=== PATIENT | female | born 1950 | race Caucasian/White ===

== ENCOUNTER 2019-02-19 11:13 | Emergency (ER) | payer MEDICARE, MEDICAID ==
[~2019-02-19 11:13] MED LIST: FERR325T23 PO; LEVO50TA8; NITR-87 PO; PHEN-910 PO; PRED5DRO7 OP; TIMO15DR12 OP
[2019-02-19 12:11] LABS: CLARITY URINE CLEAR (CLEAR); COLOR URINE YELLOW (YELLOW); KETONES URINE NEGATIVE (NEGATIVE); LEUKOCYTE ESTERASE URINE 1+ (NEGATIVE); NITRITE URINE NEGATIVE (NEGATIVE); OCCULT BLOOD URINE 2+ (NEGATIVE); PH URINE >=9.0 (4.5-8.0); PROTEIN URINE TRACE (NEGATIVE); SPECIFIC GRAVITY URINE 1.011 (1.005-1.030)
[2019-02-19] MEDS ORDERED: ACETAMINOPHEN 325MG TABLET PO ONE (12:15)
[2019-02-19] MEDS ORDERED: LEVOFLOXACIN 750MG PREMIX 150 ML IV ONE (12:15)
[2019-02-19] MEDS ORDERED: SODIUM CHLORIDE 0.9% 1000ML BAG (SEPSIS BOLUS) IV ONE (12:15)
[2019-02-19 12:34] LABS: BASOPHILS % 0.2 % (0.0-2.0); HEMATOCRIT. 41.7 % (36.0-48.0); HEMOGLOBIN. 14.4 g/dL (12.0-16.0); MEAN CORPUSCULAR HEMOGLOBIN 29.7 pg (28.0-32.0); MEAN PLATELET VOLUME 7.5 fl (7.4-10.4); MONOCYTES % 7.7 % (2.0-8.0); NEUTROPHILS % 75.1 % (40.0-76.0); PLATELET 135 x1000/uL (130-400); RED BLOOD CELL COUNT 4.84 mill/uL (4.2-5.4); RED CELL DISTRIBUTION WIDTH 15.3 % (11.6-14.6)
[2019-02-19 12:40] LABS: CHLORIDE 98 mEq/L (98-107)
[2019-02-19] MEDS ORDERED: POTASSIUM CHLORIDE 20MEQ TABLET SR PO ONE (13:15)
[2019-02-19] MEDS ORDERED: KCL 20MEQ/100ML PREMIX 100 ML IV ONE (13:15)
[2019-02-19] MEDS ORDERED: IBUPROFEN 400MG TABLET PO ONE (14:30)
[2019-02-19 20:25] VITALS: BP 119/62
== END 2019-02-19 20:30 | disposition home or self-care (01) ==
LOC: ER 11:13
DX: N39.0 Urinary tract infection, site not specified (principal); R50.9 Fever, unspecified; E78.00 Pure hypercholesterolemia, unspecified; I10 Essential (primary) hypertension; M19.90 Unspecified osteoarthritis, unspecified site; E03.9 Hypothyroidism, unspecified; E87.6 Hypokalemia
CPT/HCPCS: 36415; 71045; 80053; 81003; 83605; 83735; 84132; 84145; 84484; 85025; 87040; 87077; 87086; 87186; 93005; 96365; 96366; 96367; 99284; J1956; J3480; J7030; J7040

== ENCOUNTER 2019-02-20 12:32 | Inpatient (IN) | payer MEDICARE, MEDICAID ==
[~2019-02-20] VITALS: Ht 162.6 cm; Wt 77.6 kg
[2019-02-20] MEDS ORDERED: CEFTRIAXONE 1 G PREMIX 50 ML IV ONE (16:30)
[2019-02-20 17:18] LABS: BASOPHILS % 0.3 % (0.0-2.0); EOSINOPHILS % 0.8 % (0.0-5.0); HEMATOCRIT. 36.3 % (36.0-48.0); HEMOGLOBIN. 12.4 g/dL (12.0-16.0); LYMPHOCYTES % 29.7 % (20.0-50.0); MEAN CORPUSCULAR HEMOGLOBIN 29.7 pg (28.0-32.0); MEAN CORPUSCULAR VOLUME 87.2 fL (81.0-99.0); MEAN PLATELET VOLUME 7.9 fl (7.4-10.4); MONOCYTES % 12.7 % (2.0-8.0); NEUTROPHILS % 56.5 % (40.0-76.0); PLATELET 126 x1000/uL (130-400); RED BLOOD CELL COUNT 4.16 mill/uL (4.2-5.4); RED CELL DISTRIBUTION WIDTH 15.7 % (11.6-14.6)
[2019-02-20 17:22] LABS: CHLORIDE 109 mEq/L (98-107); INR 1.1; PROTHROMBIN TIME 11.7 sec (9.6-11.0)
[2019-02-20 18:26] LABS: CLARITY URINE CLEAR (CLEAR); COLOR URINE DARK YELLOW (YELLOW); KETONES URINE TRACE (NEGATIVE); LEUKOCYTE ESTERASE URINE 2+ (NEGATIVE); NITRITE URINE NEGATIVE (NEGATIVE); OCCULT BLOOD URINE 2+ (NEGATIVE); PROTEIN URINE 1+ (NEGATIVE); SPECIFIC GRAVITY URINE 1.023 (1.005-1.030)
[2019-02-20 22:00] VITALS: BP 111/57
[2019-02-20] MEDS ORDERED: ACETAMINOPHEN 325MG TABLET PO PRN (23:30)
[2019-02-20] MEDS ORDERED: ONDANSETRON HCL 4MG/2ML INJ IV PRN (23:30)
[2019-02-21] VITALS: BP 121/61
[2019-02-21] MEDS ORDERED: CEFTRIAXONE 1 G PREMIX 50 ML IV SCH ×2 (02:00→17:00)
[2019-02-21] MEDS: SODIUM CHL 0.9% + KCL 20MEQ/L 1,000 ML IV SCH ×2 (02:14→14:17)
[2019-02-21 04:00] VITALS: BP 104/57
[2019-02-21] MEDS ORDERED: SIMV20TA6 MT (06:45)
[2019-02-21] MEDS: LEVOTHYROXINE SODIUM 75MCG TABLET PO SCH (06:50)
[2019-02-21 07:25] LABS: BASOPHILS % 0.3 % (0.0-2.0); EOSINOPHILS % 1.5 % (0.0-5.0); HEMATOCRIT. 37.5 % (36.0-48.0); HEMOGLOBIN. 12.6 g/dL (12.0-16.0); LYMPHOCYTES % 28.5 % (20.0-50.0); MEAN CORPUSCULAR HEMOGLOBIN 29.4 pg (28.0-32.0); MEAN CORPUSCULAR VOLUME 87.7 fL (81.0-99.0); MEAN PLATELET VOLUME 8.1 fl (7.4-10.4); MONOCYTES % 10.5 % (2.0-8.0); NEUTROPHILS % 59.2 % (40.0-76.0); PLATELET 124 x1000/uL (130-400); RED BLOOD CELL COUNT 4.28 mill/uL (4.2-5.4); RED CELL DISTRIBUTION WIDTH 15.9 % (11.6-14.6)
[2019-02-21 07:25] LABS: CHLORIDE 112 mEq/L (98-107)
[2019-02-21 08:00] VITALS: BP 109/60
[2019-02-21] MEDS ORDERED: DIFL5DRO RIGHTEYE (08:10)
[2019-02-21] MEDS ORDERED: CHOL200041 PO (08:10)
[2019-02-21] MEDS ORDERED: ALEN70TA3 PO (08:10)
[2019-02-21] MEDS ORDERED: DORZ10DR9 EACHEYE (08:10)
[2019-02-21] MEDS ORDERED: HYDR-2510 PO (08:10)
[2019-02-21] MEDS ORDERED: LEVO75TA7 PO (08:10)
[2019-02-21] MEDS: DORZOLAM/TIMOLOL 2.23/0.68% OPHTH DROPS 10ML BOTHEYE SCH ×2 (08:13→20:30)
[2019-02-21 12:00] VITALS: BP 120/58
[2019-02-21] MEDS ORDERED: IBUP-2030 MT (12:58)
[2019-02-21 16:00] VITALS: BP 129/69
[2019-02-21] MEDS: DUREZOL 0.05% OP SCH (16:17)
[2019-02-21] MEDS: IBUPROFEN 800MG TABLET PO PRN (16:21)
[2019-02-21 20:00] VITALS: BP 122/58
[2019-02-21] MEDS: CHOLECALCIFEROL (D3) 1000 UNIT TABLET PO SCH (20:30)
[2019-02-21] MEDS: HYDROCHLOROTHIAZIDE 25MG TABLET PO SCH (20:30)
[2019-02-21] MEDS ORDERED: ATORVASTATIN CALCIUM 20MG TABLET PO SCH ×2 (21:00)
[2019-02-22] VITALS: BP 99/55
[2019-02-22] MEDS ORDERED: CEFTRIAXONE 2 G PREMIX 50 ML IV SCH (02:00)
[2019-02-22] MEDS ORDERED: CEFTRIAXONE 2 G in DEXTROSE 5% WATER 50 ML IV SCH (02:00)
[2019-02-22] MEDS: SODIUM CHL 0.9% + KCL 20MEQ/L 1,000 ML IV SCH (03:49)
[2019-02-22 04:00] VITALS: BP 106/56
[2019-02-22] MEDS: LEVOTHYROXINE SODIUM 75MCG TABLET PO SCH (06:20)
[2019-02-22 07:08] LABS: BASOPHILS % 0.3 % (0.0-2.0); EOSINOPHILS % 1.8 % (0.0-5.0); HEMATOCRIT. 37.8 % (36.0-48.0); HEMOGLOBIN. 12.7 g/dL (12.0-16.0); MEAN CORPUSCULAR HEMOGLOBIN 29.4 pg (28.0-32.0); MEAN CORPUSCULAR VOLUME 87.7 fL (81.0-99.0); MEAN PLATELET VOLUME 7.9 fl (7.4-10.4); MONOCYTES % 11.7 % (2.0-8.0); NEUTROPHILS % 47.2 % (40.0-76.0); PLATELET 133 x1000/uL (130-400); RED BLOOD CELL COUNT 4.31 mill/uL (4.2-5.4); RED CELL DISTRIBUTION WIDTH 15.4 % (11.6-14.6)
[2019-02-22 07:14] LABS: CHLORIDE 110 mEq/L (98-107)
[2019-02-22 08:00] VITALS: BP 120/62
[2019-02-22] MEDS: DUREZOL 0.05% OP SCH (08:24)
[2019-02-22] MEDS: CHOLECALCIFEROL (D3) 1000 UNIT TABLET PO SCH (08:25)
[2019-02-22] MEDS: DORZOLAM/TIMOLOL 2.23/0.68% OPHTH DROPS 10ML BOTHEYE SCH (08:25)
[2019-02-22] MEDS: HYDROCHLOROTHIAZIDE 25MG TABLET PO SCH (08:25)
[2019-02-22] MEDS: IBUPROFEN 800MG TABLET PO PRN (08:31)
[2019-02-22 12:00] VITALS: BP 104/59
[2019-02-22 12:38] VITALS: BP 104/59
== END 2019-02-22 14:56 | disposition home or self-care (01) | DRG 872 ==
LOC: ER 12:42 → 6EST 17:47 → EDBEDREQ 17:49 → EDBEDREQTM 17:49 → ENRESERV 19:25
PROVIDERS: ADMIT Internal Medicine; ATTEND Internal Medicine
DX: A41.51 Sepsis due to Escherichia coli [E. coli] (principal); E44.1 Mild protein-calorie malnutrition; N12 Tubulo-interstitial nephritis, not specified as acute or chronic; N39.0 Urinary tract infection, site not specified; E78.00 Pure hypercholesterolemia, unspecified; H40.9 Unspecified glaucoma; E03.9 Hypothyroidism, unspecified; E87.6 Hypokalemia; E78.5 Hyperlipidemia, unspecified; E87.8 Other disorders of electrolyte and fluid balance, not elsewhere classified; I10 Essential (primary) hypertension; Z98.49 Cataract extraction status, unspecified eye; Z68.29 Body mass index [BMI] 29.0-29.9, adult
CPT/HCPCS: 36415; 71045; 76770; 80048; 83605; 83735; 84132; 84145; 84484; 87077; 87186; 93005; 96365; 96366; 96367; 96374; 99284; 99285; J0696; J1956; J3480; J7030; J7040; J7060

== ENCOUNTER 2019-04-06 12:02 | Emergency (ER) | payer MEDICARE, MEDICAID ==
[~2019-04-06] VITALS: Ht 142.2 cm; Wt 84.0 kg
[~2019-04-06 12:02] MED LIST changes: +ALEN70TA3 PO; +CHOL200041 PO; +DIFL5DRO RIGHTEYE; +DORZ10DR9 EACHEYE; +HYDR-2510 PO; +IBUP-2030 MT; +LEVO75TA7 PO; -NITR-87 PO; +SIMV20TA6 MT
[2019-04-06 12:51] LABS: CLARITY URINE CLEAR (CLEAR); COLOR URINE YELLOW (YELLOW); KETONES URINE NEGATIVE (NEGATIVE); LEUKOCYTE ESTERASE URINE NEGATIVE (NEGATIVE); NITRITE URINE NEGATIVE (NEGATIVE); OCCULT BLOOD URINE 1+ (NEGATIVE); PH URINE 6.5 (4.5-8.0); PROTEIN URINE NEGATIVE (NEGATIVE); SPECIFIC GRAVITY URINE 1.009 (1.005-1.030); UROBILINOGEN URINE 0.2 E.U./dL (0.2-1.0)
[2019-04-06 13:07] LABS: BASOPHILS % 0.3 % (0.0-2.0); EOSINOPHILS % 1.7 % (0.0-5.0); HEMATOCRIT. 38.5 % (36.0-48.0); HEMOGLOBIN. 13.2 g/dL (12.0-16.0); LYMPHOCYTES % 12.2 % (20.0-50.0); MEAN CORPUSCULAR HEMOGLOBIN 29.5 pg (28.0-32.0); MEAN CORPUSCULAR VOLUME 86.2 fL (81.0-99.0); MEAN PLATELET VOLUME 7.8 fl (7.4-10.4); MONOCYTES % 5.4 % (2.0-8.0); NEUTROPHILS % 80.4 % (40.0-76.0); PLATELET 174 x1000/uL (130-400); RED BLOOD CELL COUNT 4.47 mill/uL (4.2-5.4); RED CELL DISTRIBUTION WIDTH 16.6 % (11.6-14.6)
[2019-04-06 13:17] LABS: CHLORIDE 102 mEq/L (98-107)
[2019-04-06] MEDS ORDERED: POTASSIUM CHLORIDE 20MEQ TABLET SR PO NR (14:00)
[2019-04-06 16:00] VITALS: BP 115/62
== END 2019-04-06 16:05 | disposition home or self-care (01) ==
LOC: ER 12:02
DX: N39.0 Urinary tract infection, site not specified (principal); E87.6 Hypokalemia; E78.00 Pure hypercholesterolemia, unspecified; I10 Essential (primary) hypertension
CPT/HCPCS: 36415; 80048; 87077; 99283

== ENCOUNTER 2020-01-02 10:31 | Emergency (ER) | payer MEDICARE, MEDICAID ==
[~2020-01-02] VITALS: Ht 152.4 cm; Wt 90.0 kg
[~2020-01-02 10:31] MED LIST changes: +SIMV-43 MT; -SIMV20TA6 MT
[2020-01-02 12:08] LABS: CLARITY URINE CLEAR (CLEAR); COLOR URINE DARK YELLOW (YELLOW); KETONES URINE TRACE (NEGATIVE); LEUKOCYTE ESTERASE URINE TRACE (NEGATIVE); NITRITE URINE NEGATIVE (NEGATIVE); OCCULT BLOOD URINE NEGATIVE (NEGATIVE); PH URINE 6.5 (4.5-8.0); PROTEIN URINE TRACE (NEGATIVE); SPECIFIC GRAVITY URINE 1.021 (1.005-1.030)
[2020-01-02] MEDS ORDERED: ACETAMINOPHEN 325MG TABLET PO ONE (12:45)
[2020-01-02 13:15] VITALS: BP 127/65
== END 2020-01-02 13:25 | disposition home or self-care (01) ==
LOC: ER 10:31
DX: R10.9 Unspecified abdominal pain (principal); E78.00 Pure hypercholesterolemia, unspecified; I10 Essential (primary) hypertension; Z87.440 Personal history of urinary (tract) infections
CPT/HCPCS: 81003; 99283

== ENCOUNTER 2021-06-08 17:30 | Emergency (ER) | payer MEDICARE, MEDICAID ==
[~2021-06-08] VITALS: Ht 152.4 cm; Wt 80.0 kg
[~2021-06-08 17:30] MED LIST changes: -HYDR-2510 PO; +HYDR50TA PO
[2021-06-08 18:03] VITALS: BP 151/54
[2021-06-08] MEDS ORDERED: DIPHENHYDRAMINE 50MG CAPSULE PO ONE (20:30)
[2021-06-08] MEDS ORDERED: PREDNISONE 20MG TABLET PO ONE (20:30)
[2021-06-08] MEDS ORDERED: DIPH25CA83 PO (20:56)
[2021-06-08] MEDS ORDERED: CEPH500C2 MT (20:56)
== END 2021-06-08 21:11 | disposition home or self-care (01) ==
LOC: ER 17:57
DX: T78.40XA Allergy, unspecified, initial encounter (principal); H60.12 Cellulitis of left external ear; I10 Essential (primary) hypertension; E78.00 Pure hypercholesterolemia, unspecified; E03.9 Hypothyroidism, unspecified; X58.XXXA Exposure to other specified factors, initial encounter
CPT/HCPCS: 99283; J7512; Q0163

== ENCOUNTER 2021-06-08 22:13 | Inpatient (IN) | payer MEDICARE, MEDICAID ==
[~2021-06-08] VITALS: Ht 162.6 cm; Wt 75.7 kg
[~2021-06-08 22:13] MED LIST changes: +CEPH500C2 MT; +DIPH25CA83 PO
[2021-06-08] MEDS ORDERED: LEVOFLOXACIN 500MG PREMIX 100 ML IV ONE (23:30)
[2021-06-08 23:41] LABS: BASOPHILS % 0.2 % (0.0-2.0); EOSINOPHILS % 0.3 % (0.0-5.0); HEMATOCRIT. 41.2 % (36.0-48.0); HEMOGLOBIN. 14.5 g/dL (12.0-16.0); LYMPHOCYTES % 12.5 % (20.0-50.0); MEAN CORPUSCULAR HEMOGLOBIN 30.7 pg (28.0-32.0); MEAN CORPUSCULAR VOLUME 87.4 fL (81.0-99.0); MEAN PLATELET VOLUME 7.2 fl (7.4-10.4); MONOCYTES % 2.8 % (2.0-8.0); NEUTROPHILS % 84.2 % (40.0-76.0); PLATELET 164 x1000/uL (130-400); RED BLOOD CELL COUNT 4.71 mill/uL (4.2-5.4); RED CELL DISTRIBUTION WIDTH 14.9 % (11.6-14.6)
[2021-06-08 23:59] LABS: CHLORIDE 103 mEq/L (98-107)
[2021-06-09 00:03] LABS: ETHANOL BLOOD < 10 mg/dL
[2021-06-09] MEDS ORDERED: POTASSIUM CHLORIDE 20MEQ/PACKET PO ONE (05:45)
[2021-06-09] MEDS ORDERED: KCL 20MEQ/100ML PREMIX 100 ML IV ONE (05:45)
[2021-06-09 06:37] LABS: CLARITY URINE CLEAR (CLEAR); COLOR URINE YELLOW (YELLOW); KETONES URINE NEGATIVE (NEGATIVE); LEUKOCYTE ESTERASE URINE TRACE (NEGATIVE); NITRITE URINE NEGATIVE (NEGATIVE); OCCULT BLOOD URINE NEGATIVE (NEGATIVE); PROTEIN URINE NEGATIVE (NEGATIVE); SPECIFIC GRAVITY URINE 1.014 (1.005-1.030)
[2021-06-09 07:17] LABS: *AMPHETAMINES SCREEN URINE NEGATIVE (NEGATIVE); *BARBITURATES SCREEN URINE NEGATIVE (NEGATIVE); *BENZODIAZEPINES SCREEN URINE NEGATIVE (NEGATIVE); *COCAINE SCREEN URINE NEGATIVE (NEGATIVE); METHADONE URINE SCREEN NEGATIVE (NEGATIVE)
[2021-06-09 07:18] LABS: CANNABINOID URINE SCREEN NEGATIVE (NEGATIVE); OPIATES URINE SCREEN NEGATIVE (NEGATIVE); PHENCYCLIDINE URINE SCREEN NEGATIVE (NEGATIVE)
[2021-06-09] MEDS ORDERED: ONDANSETRON HCL 4MG/2ML INJ IV PRN (10:45)
[2021-06-09] MEDS ORDERED: ACETAMINOPHEN 325MG TABLET PO PRN (10:45)
[2021-06-09] MEDS ORDERED: AMPICILLIN SOD/SULBACTAM NA 3 G in SODIUM CHLORIDE 0.9% 100 ML IV SCH (12:00)
[2021-06-09 20:40] VITALS: BP 112/55
[2021-06-09] MEDS ORDERED: LEVOFLOXACIN 500MG PREMIX 100 ML IV SCH ×2 (21:00→23:00)
[2021-06-09] MEDS: DIPHENHYDRAMINE 50MG/ML VIAL IV PRN (21:45)
[2021-06-09] MEDS ORDERED: DEXTROSE 5% IV PRN (23:00)
[2021-06-09] MEDS ORDERED: WATER IV PRN (23:00)
[2021-06-09] MEDS ORDERED: ONDANSETRON IV PRN (23:00)
[2021-06-09] MEDS: NEOMYCIN-POLYMYXIN B-HYDROCORTISONE 1% OTIC SOLN 10ML LEFT EAR SCH (23:07)
[2021-06-10] VITALS: BP 127/64
[2021-06-10 04:00] VITALS: BP 126/67
[2021-06-10] MEDS: DIPHENHYDRAMINE 50MG/ML VIAL IV PRN (04:43)
[2021-06-10] MEDS: NEOMYCIN-POLYMYXIN B-HYDROCORTISONE 1% OTIC SOLN 10ML LEFT EAR SCH ×4 (05:56→23:47)
[2021-06-10 08:00] VITALS: BP 90/46
[2021-06-10] MEDS: PANTOPRAZOLE SODIUM 40 MG/VIAL IV SCH (11:48)
[2021-06-10] MEDS: DIPHENHYDRAMINE HCL/ZINC ACET 28 GM CREAM TOP PRN ×3 (11:48→21:55)
[2021-06-10 12:00] VITALS: BP 98/53
[2021-06-10 13:47] LABS: CHLORIDE 104 mEq/L (98-107)
[2021-06-10 16:00] VITALS: BP 84/53
[2021-06-10] MEDS ORDERED: ZOLPIDEM TARTRATE 5MG TABLET PO PRN (18:45)
[2021-06-10] MEDS ORDERED: POTASSIUM CHLORIDE 20MEQ TABLET SR PO NR (18:45)
[2021-06-10] MEDS: DOCUSATE SODIUM 100MG CAPSULE PO SCH (18:57)
[2021-06-10] MEDS ORDERED: POTA2TAB18 PO (19:03)
[2021-06-10] MEDS ORDERED: HYDR25TA MT (19:10)
[2021-06-10] MEDS ORDERED: CHOL500010 (19:10)
[2021-06-10] MEDS ORDERED: DIFL5DRO RIGHTEYE (19:11)
[2021-06-10] MEDS ORDERED: BRIM15DR8 EACHEYE (19:11)
[2021-06-10 20:00] VITALS: BP 101/47
[2021-06-10] MEDS ORDERED: NON FORMULARY PATIENT HOME MED XX SCH (22:15)
[2021-06-11] VITALS: BP 83/46
[2021-06-11 00:15] VITALS: BP 87/53
[2021-06-11 04:00] VITALS: BP 102/56
[2021-06-11] MEDS: NEOMYCIN-POLYMYXIN B-HYDROCORTISONE 1% OTIC SOLN 10ML LEFT EAR SCH ×2 (06:35→15:47)
[2021-06-11] MEDS: DIPHENHYDRAMINE HCL/ZINC ACET 28 GM CREAM TOP PRN ×3 (06:43→15:46)
[2021-06-11] MEDS: DIPHENHYDRAMINE 50MG/ML VIAL IV PRN (07:07)
[2021-06-11] MEDS ORDERED: LEVOTHYROXINE SODIUM 75MCG TABLET PO SCH (07:20)
[2021-06-11 08:00] VITALS: BP 104/58
[2021-06-11] MEDS ORDERED: IBUPROFEN 800MG TABLET PO SCH (09:00)
[2021-06-11] MEDS ORDERED: HYDROCHLOROTHIAZIDE 25MG TABLET PO SCH (09:00)
[2021-06-11] MEDS: PANTOPRAZOLE SODIUM 40 MG/VIAL IV SCH (09:01)
[2021-06-11] MEDS: DOCUSATE SODIUM 100MG CAPSULE PO SCH (09:02)
[2021-06-11] MEDS: DORZOLAM/TIMOLOL 2.23/0.68% OPHTH DROPS 10ML EACHEYE SCH ×2 (09:03→15:47)
[2021-06-11] MEDS: BRIMONIDINE 0.2% OPHTH DROPS 5ML EACHEYE SCH ×2 (09:03→15:47)
[2021-06-11 12:00] VITALS: BP 110/54
[2021-06-11 15:58] VITALS: BP 20/101
[2021-06-12] MEDS ORDERED: DIPH25CA83 PO (08:12)
[2021-06-12] MEDS ORDERED: P50 PO (08:12)
[2021-06-12] MEDS ORDERED: FAMOTIDINE 20MG TABLET PO SCH (09:00)
== END 2021-06-11 16:50 | disposition home or self-care (01) | DRG 156 ==
LOC: ER 22:13 → MICUSO 23:19 → 6EST 06-09 19:55
PROVIDERS: ADMIT Internal Medicine; ATTEND Internal Medicine
DX: H60.92 Unspecified otitis externa, left ear (principal); M81.0 Age-related osteoporosis without current pathological fracture; E78.00 Pure hypercholesterolemia, unspecified; E87.6 Hypokalemia; I10 Essential (primary) hypertension; R21 Rash and other nonspecific skin eruption; Z20.822 Contact with and (suspected) exposure to COVID-19; Z90.49 Acquired absence of other specified parts of digestive tract; Z79.899 Other long term (current) drug therapy; Z79.1 Long term (current) use of non-steroidal anti-inflammatories (NSAID)
CPT/HCPCS: 36415; 71045; 80048; 80053; 80305; 80320; 81003; 82140; 82962; 83605; 83880; 84443; 84484; 85025; 87426; 93005; 99283; 99285; C9113; J0295; J1200; J1956; J3480; J7040; J7050; J7512; Q0163; G0480

== ENCOUNTER 2021-06-12 06:14 | Emergency (ER) | payer MEDICARE, MEDICAID ==
[~2021-06-12] VITALS: Ht 154.9 cm; Wt 80.0 kg
[~2021-06-12 06:14] MED LIST changes: +BRIM15DR8 EACHEYE; -CEPH500C2 MT; +CHOL500010; +HYDR25TA MT; +POTA2TAB18 PO
[2021-06-12] MEDS ORDERED: METHYLPREDNISOLONE SOD SUCC 125 MG/2 ML VIAL IV ONE (07:15)
[2021-06-12] MEDS ORDERED: DIPHENHYDRAMINE 50MG/ML VIAL IV ONE (07:15)
[2021-06-12] MEDS ORDERED: FAMOTIDINE 20MG/2ML VIAL IV ONE (07:15)
[2021-06-12] MEDS ORDERED: P50 PO (08:12)
[2021-06-12] MEDS ORDERED: DIPH25CA83 PO (08:12)
[2021-06-12 08:54] VITALS: BP 104/50
== END 2021-06-12 08:56 | disposition home or self-care (01) ==
LOC: ER 06:29
DX: T78.40XA Allergy, unspecified, initial encounter (principal); E03.9 Hypothyroidism, unspecified; M81.0 Age-related osteoporosis without current pathological fracture; E78.00 Pure hypercholesterolemia, unspecified; Z98.42 Cataract extraction status, left eye; Z98.41 Cataract extraction status, right eye; Z90.710 Acquired absence of both cervix and uterus; X58.XXXA Exposure to other specified factors, initial encounter
CPT/HCPCS: 96374; 96375; 99284; J1200; J2930; J3490

== ENCOUNTER 2021-06-26 16:03 | Emergency (ER) | payer MEDICARE, MEDICAID ==
[~2021-06-26] VITALS: Ht 162.6 cm; Wt 80.0 kg
[~2021-06-26 16:03] MED LIST changes: +P50 PO
[2021-06-26] MEDS ORDERED: BACITRACIN ZINC OINT UDPKT TOP ONE (17:30)
[2021-06-26] MEDS ORDERED: LIDOCAINE HCL/PF 1% 10 MG/ML 5ML VIAL INFIL ONE (17:30)
[2021-06-26 17:36] LABS: BASOPHILS % 1.3 % (0.0-2.0); EOSINOPHILS % 0.9 % (0.0-5.0); HEMATOCRIT. 38.2 % (36.0-48.0); HEMOGLOBIN. 13.1 g/dL (12.0-16.0); LYMPHOCYTES % 26.6 % (20.0-50.0); MEAN CORPUSCULAR HEMOGLOBIN 29.8 pg (28.0-32.0); MEAN CORPUSCULAR VOLUME 87.2 fL (81.0-99.0); MEAN PLATELET VOLUME 6.9 fl (7.4-10.4); MONOCYTES % 10.5 % (2.0-8.0); NEUTROPHILS % 60.7 % (40.0-76.0); PLATELET 154 x1000/uL (130-400); RED BLOOD CELL COUNT 4.38 mill/uL (4.2-5.4); RED CELL DISTRIBUTION WIDTH 15.1 % (11.6-14.6)
[2021-06-26 17:41] LABS: CHLORIDE 105 mEq/L (98-107)
[2021-06-26] MEDS ORDERED: ACET-2708 PO (18:19)
[2021-06-26] MEDS ORDERED: TETANUS, DIPHTHERIA, PERTUSSIS VAC/PF 0.5ML (>7YR OLD) IM ONE (18:30)
[2021-06-26 19:30] VITALS: BP 128/88
== END 2021-06-26 19:32 | disposition home or self-care (01) ==
LOC: ER 16:03
DX: S61.213A Laceration without foreign body of left middle finger without damage to nail, initial encounter (principal); E87.6 Hypokalemia; E03.9 Hypothyroidism, unspecified; H40.9 Unspecified glaucoma; M81.0 Age-related osteoporosis without current pathological fracture; E78.00 Pure hypercholesterolemia, unspecified; Z90.710 Acquired absence of both cervix and uterus; W01.0XXA Fall on same level from slipping, tripping and stumbling without subsequent striking against object, initial encounter; Y93.89 Activity, other specified; Y92.018 Other place in single-family (private) house as the place of occurrence of the external cause
CPT/HCPCS: 12001; 36415; 73130; 80048; 85025; 90471; 90715; 99284; J3490

== ENCOUNTER 2021-06-28 20:00 | Emergency (ER) | payer MEDICARE, MEDICAID ==
[~2021-06-28] VITALS: Ht 162.6 cm; Wt 80.0 kg
[~2021-06-28 20:00] MED LIST changes: +ACET-2708 PO
[2021-06-28] MEDS ORDERED: ACETAMINOPHEN 325MG TABLET PO ONE (22:30)
[2021-06-28 22:37] VITALS: BP 131/66
== END 2021-06-28 22:38 | disposition home or self-care (01) ==
LOC: ER 20:00
DX: S61.412D Laceration without foreign body of left hand, subsequent encounter (principal); H40.9 Unspecified glaucoma; E78.00 Pure hypercholesterolemia, unspecified; X58.XXXD Exposure to other specified factors, subsequent encounter; Z90.710 Acquired absence of both cervix and uterus; Z79.899 Other long term (current) drug therapy
CPT/HCPCS: 99281

== ENCOUNTER 2023-02-11 21:55 | Inpatient (IN) | payer MEDICARE, MEDICAID ==
[~2023-02-11] VITALS: Ht 144.8 cm; Wt 72.6 kg
[~2023-02-11 21:55] MED LIST changes: -ALEN70TA3 PO; +ALEN70TA84 PO
[2023-02-11] MEDS ORDERED: KETOROLAC 60MG/2ML VIAL IM ONE (23:45)
[2023-02-11] MEDS ORDERED: HYDROCODONE/ACETAMINOPHEN 10/325MG TABLET PO ONE (23:45)
[2023-02-12] MEDS ORDERED: TRAM50TA3 MT (02:11)
[2023-02-12] MEDS ORDERED: MORPHINE SULFATE 4 MG/ML CPJ (NOT FOR IM USE) IV NR (02:33)
[2023-02-12 04:04] LABS: BASOPHILS % 0.6 % (0.0-2.0); EOSINOPHILS % 1.6 % (0.0-5.0); HEMATOCRIT. 37.1 % (36.0-48.0); HEMOGLOBIN. 13.1 g/dL (12.0-16.0); LYMPHOCYTES % 34.4 % (20.0-50.0); MEAN CORPUSCULAR HEMOGLOBIN 30.5 pg (28.0-32.0); MEAN CORPUSCULAR VOLUME 85.9 fL (81.0-99.0); MEAN PLATELET VOLUME 7.1 fl (7.4-10.4); MONOCYTES % 7.9 % (2.0-8.0); NEUTROPHILS % 55.5 % (40.0-76.0); PLATELET 150 x1000/uL (130-400); RED BLOOD CELL COUNT 4.32 mill/uL (4.2-5.4); RED CELL DISTRIBUTION WIDTH 14.1 % (11.6-14.6)
[2023-02-12 04:09] LABS: CHLORIDE 104 mEq/L (98-107)
[2023-02-12 18:20] VITALS: BP 113/46
[2023-02-12] MEDS ORDERED: NALOXONE HCL 0.4MG/ML VIAL IV PRN (19:15)
[2023-02-12 19:23] VITALS: BP 113/46
[2023-02-12 20:00] VITALS: BP 126/48
[2023-02-12] MEDS: HYDROCODONE/ACETAMINOPHEN 5/325MG TABLET PO PRN (20:07)
[2023-02-12] MEDS: ENOXAPARIN 40MG/0.4ML SYR SUBCUT SCH (21:22)
[2023-02-13] VITALS: BP 121/51
[2023-02-13 04:00] VITALS: BP 124/54
[2023-02-13] MEDS: HYDROCODONE/ACETAMINOPHEN 5/325MG TABLET PO PRN ×2 (06:31→21:40)
[2023-02-13 07:18] LABS: BASOPHILS % 0.8 % (0.0-2.0); EOSINOPHILS % 1.5 % (0.0-5.0); HEMATOCRIT. 36.7 % (36.0-48.0); LYMPHOCYTES % 36.4 % (20.0-50.0); MEAN CORPUSCULAR HEMOGLOBIN 30.4 pg (28.0-32.0); MEAN CORPUSCULAR VOLUME 85.8 fL (81.0-99.0); MEAN PLATELET VOLUME 7.1 fl (7.4-10.4); MONOCYTES % 7.9 % (2.0-8.0); NEUTROPHILS % 53.4 % (40.0-76.0); PLATELET 150 x1000/uL (130-400); RED BLOOD CELL COUNT 4.28 mill/uL (4.2-5.4); RED CELL DISTRIBUTION WIDTH 14.1 % (11.6-14.6)
[2023-02-13 07:46] LABS: CHLORIDE 108 mEq/L (98-107)
[2023-02-13 08:00] VITALS: BP 98/49
[2023-02-13] MEDS ORDERED: POTASSIUM CHLORIDE 20MEQ TABLET SR PO SCH ×2 (08:30→09:30)
[2023-02-13] MEDS ORDERED: IBUPROFEN 800MG TABLET PO PRN (10:15)
[2023-02-13] MEDS: LEVOTHYROXINE SODIUM 100MCG TABLET PO SCH (10:50)
[2023-02-13] MEDS: CHOLECALCIFEROL (D3) 1000 UNIT TABLET PO SCH (10:50)
[2023-02-13] MEDS: HYDROCHLOROTHIAZIDE 25MG TABLET PO SCH (10:50)
[2023-02-13] MEDS: POTASSIUM CHLORIDE 10MEQ TABLET SR PO SCH (10:51)
[2023-02-13 12:00] VITALS: BP 131/61
[2023-02-13] MEDS: DORZOLAM/TIMOLOL 2.23/0.68% OPHTH DROPS 10ML BOTHEYE SCH ×2 (12:00→21:39)
[2023-02-13 16:00] VITALS: BP 117/61
[2023-02-13 20:00] VITALS: BP 116/52
[2023-02-13] MEDS ORDERED: ATORVASTATIN CALCIUM 10MG TABLET PO SCH (21:00)
[2023-02-13] MEDS: ENOXAPARIN 40MG/0.4ML SYR SUBCUT SCH (21:30)
[2023-02-14] VITALS: BP 99/37
[2023-02-14 04:00] VITALS: BP 106/51
[2023-02-14] MEDS: LEVOTHYROXINE SODIUM 100MCG TABLET PO SCH (06:25)
[2023-02-14 08:00] VITALS: BP 127/56
[2023-02-14] MEDS: HYDROCHLOROTHIAZIDE 25MG TABLET PO SCH (10:24)
[2023-02-14] MEDS: DORZOLAM/TIMOLOL 2.23/0.68% OPHTH DROPS 10ML BOTHEYE SCH (10:24)
[2023-02-14] MEDS: POTASSIUM CHLORIDE 10MEQ TABLET SR PO SCH (10:25)
[2023-02-14] MEDS: HYDROCODONE/ACETAMINOPHEN 5/325MG TABLET PO PRN (10:39)
[2023-02-14 10:52] VITALS: BP 127/56
[2023-02-14 11:20] VITALS: BP 113/50
[2023-02-14 12:00] VITALS: BP 113/50
[2023-02-14] MEDS: CHOLECALCIFEROL (D3) 1000 UNIT TABLET PO SCH (12:06)
== END 2023-02-14 12:25 | disposition home health service (06) | DRG 563 ==
LOC: ER 21:55 → 6EST 02-12 02:32
PROVIDERS: ADMIT Hospitalist; ATTEND Hospitalist
DX: S83.519A Sprain of anterior cruciate ligament of unspecified knee, initial encounter (principal); M17.0 Bilateral primary osteoarthritis of knee; I10 Essential (primary) hypertension; E78.00 Pure hypercholesterolemia, unspecified; E03.9 Hypothyroidism, unspecified; G89.29 Other chronic pain; H40.9 Unspecified glaucoma; Z79.899 Other long term (current) drug therapy; Z90.710 Acquired absence of both cervix and uterus; X58.XXXA Exposure to other specified factors, initial encounter; Y93.89 Activity, other specified; Y92.89 Other specified places as the place of occurrence of the external cause; Y99.8 Other external cause status
CPT/HCPCS: 36415; 73562; 73721; 80048; 80053; 85025; 93970; 97162; 99285; J1650; J1885

== ENCOUNTER 2024-12-30 15:17 | Emergency (ER) | payer MEDICARE, MEDICAID ==
[~2024-12-30] VITALS: Ht 152.4 cm; Wt 63.5 kg
[~2024-12-30 15:17] MED LIST changes: -ACET-2708 PO; +ALEN70TA79 PO; -ALEN70TA84 PO; -BRIM15DR8 EACHEYE; +BRIM5DRO6 EACHEYE; -CHOL200041 PO; -DIFL5DRO RIGHTEYE; -DIPH25CA83 PO; -FERR325T23 PO; -HYDR50TA PO; +LEVO100T9 PO; -LEVO50TA8; -LEVO75TA7 PO; -P50 PO; -PHEN-910 PO; +POTA-203 PO; -POTA2TAB18 PO; -PRED5DRO7 OP; -TIMO15DR12 OP
[2024-12-30 15:35] VITALS: BP 128/59; RESP 16; TEMP 36.7; O2SAT 99
[2024-12-30 15:36] VITALS: PULSE 78; O2SAT 98
[2024-12-30 16:56] LABS: BASOPHILS % 0.6 % (0.0-2.0); EOSINOPHILS % 2.7 % (0.0-5.0); HEMATOCRIT. 38.1 % (36.0-48.0); LYMPHOCYTES % 37.7 % (20.0-50.0); MEAN CORPUSCULAR HEMOGLOBIN 33.1 pg (28.0-32.0); MEAN CORPUSCULAR HGB CONC 34.2 g/dL (31.0-37.0); MEAN CORPUSCULAR VOLUME 96.8 fL (81.0-99.0); MEAN PLATELET VOLUME 6.7 fl (7.4-10.4); MONOCYTES % 8.3 % (2.0-8.0); NEUTROPHILS % 50.7 % (40.0-76.0); PLATELET 168 x1000/uL (130-400); RED BLOOD CELL COUNT 3.93 mill/uL (4.2-5.4); RED CELL DISTRIBUTION WIDTH 14.3 % (11.6-14.6); WHITE BLOOD COUNT 7.4 x1000/uL (4.5-11.0)
[2024-12-30 17:06] LABS: CHLORIDE 106 mEq/L (98-107); POTASSIUM 3.4 mEq/L (3.5-5.1); SODIUM 139 mEq/L (136-145)
[2024-12-30 17:07] LABS: CALCIUM 8.8 mg/dL (8.7-10.4); CARBON DIOXIDE 25 mEq/L (21-32)
[2024-12-30 17:12] LABS: CREATININE 0.7 mg/dL (0.6-1.0); GLUCOSE 118 mg/dL (70-105); UREA NITROGEN BLOOD 13 mg/dL (9-23)
[2024-12-30 17:13] LABS: TROPONIN I HIGH SENSITIVITY 4 ng/L (3.0-34)
[2024-12-30] MEDS: MECLIZINE 25MG TABLET PO ONE (20:06)
== END 2024-12-30 22:36 | disposition home or self-care (01) ==
LOC: ER 15:17
DX: R42 Dizziness and giddiness (principal); M79.10 Myalgia, unspecified site; I10 Essential (primary) hypertension; E78.00 Pure hypercholesterolemia, unspecified; Z79.899 Other long term (current) drug therapy; Z90.710 Acquired absence of both cervix and uterus; Z86.39 Personal history of other endocrine, nutritional and metabolic disease; Z98.890 Other specified postprocedural states
CPT/HCPCS: 99285; 70450; 71045; 80048; 85025; 84484; 36415; 93005; J8597